=== PATIENT | male | born 1940 | race Caucasian/White ===

== ENCOUNTER 2021-07-30 09:19 | Emergency (ER) | payer MEDICARE ==
[~2021-07-30] VITALS: Ht 172.7 cm; Wt 100.0 kg
[~2021-07-30 09:19] MED LIST: HYDR-4383 PO
[2021-07-30 10:17] VITALS: BP 124/64
[2021-07-30 10:56] LABS: BASOPHILS % (AUTO) 0.4 % (0-1); EOSINOPHILS # (AUTO) 0.1 X10'3 (0-0.9); HEMATOCRIT 36.2 % (42.0-52.0); HEMOGLOBIN 12.1 g/dl (14.0-17.9); LYMPHOCYTES # (AUTO) 1.4 X10'3 (1.1-4.8); LYMPHOCYTES % (AUTO) 19.7 % (21-51); MEAN CORPUSCULAR HEMOGLOBIN 36.1 PG (27.0-31.0); MEAN CORPUSCULAR HGB CONC 33.5 g/dL (33.0-36.5); MEAN CORPUSCULAR VOLUME 107.7 FL (78-98); MEAN PLATELET VOLUME 8.5 FL (7.4-10.4); MONOCYTES # (AUTO) 0.8 X10'3 (0-0.9); MONOCYTES % (AUTO) 11.2 % (2-12); NEUTROPHILS # (AUTO) 4.7 X10'3 (1.8-7.7); NEUTROPHILS % (AUTO) 67.7 % (42-75); PLATELET COUNT 204 X10'3 (140-440); RED BLOOD COUNT 3.36 X10'6 (4.70-6.10); RED CELL DISTRIBUTION WIDTH 12.4 % (11.5-14.5); WHITE BLOOD COUNT 6.9 X10'3 (4.5-11.0)
[2021-07-30 11:11] LABS: ALANINE AMINOTRANSFERASE 35 U/L (12-78); ALBUMIN 3.5 G/DL (3.4-5.0); ALBUMIN/GLOBULIN RATIO 0.9 (1.1-1.5); ALKALINE PHOSPHATASE 85 IU/L (46-116); ANION GAP 10 (8-16); ASPARTATE AMINO TRANSFERASE 18 U/L (10-37); BILIRUBIN,TOTAL 0.4 MG/DL (0.1-1.0); BLOOD UREA NITROGEN 29 MG/DL (7-18); CALCIUM 7.8 MG/DL (8.5-10.1); CHLORIDE 111 MMOL/L (99-107); CREATININE 1.61 MG/DL (0.60-1.10); GLUCOSE 68 MG/DL (70-104); LIPASE 84 U/L (73-393); POTASSIUM 4.3 MMOL/L (3.5-5.1); SODIUM 143 MMOL/L (135-145); TOTAL CARBON DIOXIDE 22.3 MMOL/L (24-32); TOTAL PROTEIN 7.5 G/DL (6.4-8.2); eGFR 41 ML/MIN
[2021-07-30 11:35] LABS: COLOR,URINE YELLOW (Yellow); UA COLLECTION TYPE VOIDED
[2021-07-30 11:36] LABS: CLARITY,URINE CLOUDY (Clear); GLUCOSE, URINE NEGATIVE (Neg); KETONES,URINE NEGATIVE (Neg); LEUKOCYTE ESTERASE ,URINE MODERATE (Neg); NITRITES, URINE NEGATIVE (Neg); OCCULT BLOOD,URINE LARGE (Neg); PROTEIN,URINE 300 mg/dl (Neg); UROBILINOGEN,URINE 0.2 E.U/dL (0.2-1.0)
[2021-07-30 11:42] LABS: WBC,URINE TNTC /HPF (0-4)
[2021-07-30 11:43] LABS: BACTERIA,URINE 1+ /HPF (Neg); SQUAMOUS EPITHELIAL CELL,UR NONE SEEN /LPF (FEW); TRANSITIONAL EPI CELLS,URINE FEW /HPF
[2021-07-30 11:44] LABS: RENAL CELLS, URINE FEW /HPF; YEAST FEW /HPF (NEGATIVE)
[2021-07-30] MEDS ORDERED: NITR100C6 PO (12:02)
== END 2021-07-31 08:09 | disposition home or self-care (01) ==
LOC: ER 09:20
DX: N39.0 Urinary tract infection, site not specified (principal); R30.0 Dysuria; R31.9 Hematuria, unspecified; Z87.442 Personal history of urinary calculi; Z98.890 Other specified postprocedural states; Z79.899 Other long term (current) drug therapy
CPT/HCPCS: 36415; 80053; 81001; 83690; 85025; 87088; 99283

== ENCOUNTER 2021-08-08 08:11 | Emergency (ER) | payer MEDICARE ==
[~2021-08-08] VITALS: Ht 172.7 cm; Wt 90.9 kg
[~2021-08-08 08:11] MED LIST changes: +NITR100C6 PO
[2021-08-08 08:13] VITALS: BP 136/74
[2021-08-08] MEDS ORDERED: FLO0.4C PO (10:10)
[2021-08-08] MEDS ORDERED: FLUC100T PO (10:10)
== END 2021-08-08 10:21 | disposition home or self-care (01) ==
LOC: ER 08:12
DX: R33.9 Retention of urine, unspecified (principal); R30.0 Dysuria; B37.41 Candidal cystitis and urethritis; Z87.442 Personal history of urinary calculi; Z98.890 Other specified postprocedural states; Z79.2 Long term (current) use of antibiotics; Z79.899 Other long term (current) drug therapy
CPT/HCPCS: 99284